=== PATIENT | male | born 1960 | race Caucasian/White ===

== ENCOUNTER → 2017-02-15 | Outpatient (CLI) | payer OTHER ==
--- NOTE | 2017-02-15 17:28 | CARD ---
APPROVED REPORT EXAM: Two-dimensional and M-mode echocardiogram with Doppler and color Doppler. Other Information Quality : Good INDICATION Murmur 2D DIMENSIONS RVDd3.6 (2.9-3.5cm)Left Atrium(2D)4.3 (1.6-4.0cm) IVSd1.2 (0.7-1.1cm)Aortic Root(2D)3.4 (2.0-3.7cm) LVDd5.5 (3.9-5.9cm)LVOT Diameter2.5 (1.8-2.4cm) PWd1.2 (0.7-1.1cm)LVDs3.7 (2.5-4.0cm) FS (%) 33.8 %SV92.7 ml LVEF(%)60.0 (>50%) Aortic Valve AoV Peak Bud.141.8cm/sAoV VTI29.1cm AO Peak GR.8.0mmHgLVOT Peak Bud.126.3cm/s LVOT VTI 27.15cmAO Mean GR.5mmHg DONELL (VMAX)4.40hq2OFG (VTI)4.73cm2 AI P 1/2 Dwye066sg Mitral Valve MV E Wuimmlhy08.5cm/sMV DECEL KWLP429hr MV A Gfwpjjat92.4cm/sMV RCG30yi E/A Ratio0.6MVA (PHT)3.31cm2 TDI E/Lateral E'6.6E/Medial E'6.8 Tricuspid Valve TR P. Ycwdrbda285do/sRAP QQXRZKET8kdEu TR Peak Gr.88zxAdCXLC28wyUp Pulmonary Vein S1 Wgpcppou53.6cm/sD2 Ensiltjt62.2cm/s PVa eifzwwhd179cvnm LEFT VENTRICLE The left ventricle is normal size. There is mild concentric left ventricular hypertrophy. The left ve ntricular systolic function is normal and the ejection fraction is within normal range. The Ejection Fraction is 55-60%. Transmitral Doppler flow pattern is Grade I-abnormal relaxation pattern. RIGHT VENTRICLE The right ventricle is normal size. The right ventricular systolic function is normal. ATRIA The left atrium is mildly dilated. The right atrium size is normal. The interatrial septum is intact with no evidence for an atrial septal defect or patent foramen ovale as noted on 2-D or Doppler imagi ng. AORTIC VALVE The aortic valve is normal in structure and function. Doppler and Color Flow revealed trace aortic re gurgitation. There is no significant aortic valvular stenosis. MITRAL VALVE The mitral valve is normal in structure and function. There is no evidence of mitral valve prolapse. There is no mitral valve stenosis. Doppler and Color-flow revealed trace to mild mitral regurgitation . TRICUSPID VALVE The tricuspid valve is normal in structure and function. Doppler and Color Flow revealed trace tricus pid regurgitation. The PA pressure was estimated at 38 mmHg. There is no tricuspid valve stenosis. PULMONIC VALVE The pulmonary valve is normal in structure and function. Doppler and Color Flow revealed trace pulmon ic valvular regurgitation. There is no pulmonic valvular stenosis. GREAT VESSELS The aortic root is normal in size. The ascending aorta is normal in size. The IVC is normal in size a nd collapses >50% with inspiration. PERICARDIAL EFFUSION There is no evidence of significant pericardial effusion. Critical Notification Critical Value: No <Conclusion> The left ventricle is normal size. The left ventricular systolic function is normal and the ejection fraction is within normal range. The Ejection Fraction is 55-60%. There is mild concentric left ventricular hypertrophy. There is no significant aortic valvular stenosis. Doppler and Color Flow revealed trace aortic regurgitation. Doppler and Color-flow revealed trace to mild mitral regurgitation. Doppler and Color Flow revealed trace tricuspid regurgitation. The PA pressure was estimated at 38 mmHg.
== END | disposition home or self-care (01) ==
LOC: ECHO 10:50
PROVIDERS: ATTEND Internal Medicine Cardiovascular Disease
DX: I08.3 Combined rheumatic disorders of mitral, aortic and tricuspid valves (principal); R55 Syncope and collapse
CPT/HCPCS: 93306

== ENCOUNTER → 2018-07-04 | Outpatient (CLI) | payer OTHER ==
--- NOTE | 2018-07-04 16:40 | RAD ---
Bilateral lower extremity venous ultrasound, 07/04/2018: History: Leg swelling Duplex evaluation of the deep veins in the lower extremities was performed including grayscale, color-flow and spectral Doppler analysis. The femoral and popliteal veins demonstrate normal compressibility and normal responses to distal augmentation maneuvers. Color imaging of those vessels shows no evidence of intraluminal clot. The visualized deep veins in both calves are patent. IMPRESSION: There is no sonographic evidence of deep vein thrombosis in either lower extremity. Electronically signed by: Silverio Stock MD (07/04/2018 4:37 PM) [facility]
== END | disposition home or self-care (01) ==
LOC: US 15:35
PROVIDERS: ATTEND Family Medicine
DX: R22.41 Localized swelling, mass and lump, right lower limb (principal); R22.42 Localized swelling, mass and lump, left lower limb
CPT/HCPCS: 93970

== ENCOUNTER 2018-09-04 14:18 | Emergency (ER) | payer OTHER ==
[~2018-09-04] VITALS: Ht 198.1 cm; Wt 113.4 kg
[2018-09-04] MEDS ORDERED: IV NORMAL SALINE 1000ML BAG 1,000 ML IV ONE (14:30)
--- NOTE | 2018-09-04 14:45 | PHYS DOC ---
Past Medical History Past Medical History: Seizure Past Surgical History: Other Additional Past Surgical Histo: back and right carpal tunnel Alcohol Use: None Drug Use: None Adult General Chief Complaint Chief Complaint: SEIZURE HPI HPI Patient is a 58 year old male brought in by ambulance treatment of seizure. [facility] with shaking of the right hand also urinary incontinence was noted. History limited however the patient does say that he has had a seizure in the past but it was a long time ago he says he does not drink alcohol. Additional history obtained from the family patient has had a seizure approximately once 5 years for the last 20 years he is driving at this time does not track alcohol he says that it happens when he eats too much sugar or is not sleeping well. Both of those things occur last night Review of Systems Review of Systems Limited by altered mental status Current Medications Current Medications Current Medications Medications (Trade) Dose Ordered Sig/Maurice Start Time Stop Time Status Last Admin Dose Admin Acetaminophen (Tylenol) 1,000 mg 1X ONCE 09/04/18 16:45 09/04/18 16:46 DC 09/04/18 17:07 1,000 MG Lorazepam (Ativan) 1 mg 1X ONCE 09/04/18 14:30 09/04/18 14:31 DC 09/04/18 14:55 1 MG Sodium Chloride 1,000 ml @ 1,000 mls/hr 1X ONCE 09/04/18 14:30 09/04/18 15:29 DC 09/04/18 14:53 1,000 MLS/HR Allergies Allergies Allergies Coded Allergies Type Severity Reaction Last Updated Verified No Known Drug Allergies 09/04/18 No Physical Exam Physical Exam Constitutional: Well developed, well nourished,mild distress, non-toxic appearance. [] HENT: Normocephalic, atraumatic, bilateral external ears normal, oropharynx moist, no oral exudates, nose normal. [] Eyes: PERRLA, EOMI, conjunctiva normal, no discharge. [] Neck: Normal range of motion, no tenderness, supple, no stridor. [] Cardiovascular:Heart rate regular rhythm, no murmur [] Lungs & Thorax: Bilateral breath sounds clear to auscultation [] Abdomen: Bowel sounds normal, soft, no tenderness, no masses, no pulsatile masses. [] Skin: Warm, dry, no erythema, no rash. [] Back: No tenderness, no CVA tenderness. [] Extremities: No tenderness, no cyanosis, no clubbing, ROM intact, no edema. [] Neurologic: Alert and oriented X 2, normal motor function, normal sensory function, no focal deficits noted. [] no focal findings. Psychologic: Affect normal, judgement normal, mood anxious Current Patient Data Vital Signs Vital Signs Date Time Temp Pulse Resp B/P (MAP) Pulse Ox O2 Delivery O2 Flow Rate FiO2 09/04/18 17:01 90 20 97 09/04/18 14:20 97.7 151/95 (113) Room Air 97.7 Lab Values Laboratory Tests Test 09/04/18 15:00 White Blood Count 9.1 x10^3/uL (4.0-11.0) Red Blood Count 5.68 x10^6/uL (4.30-5.70) Hemoglobin 16.3 g/dL (13.0-17.5) Hematocrit 47.4 % (39.0-53.0) Mean Corpuscular Volume 84 fL (79-100) Mean Corpuscular Hemoglobin 29 pg (25-35) Mean Corpuscular Hemoglobin Concent 34 g/dL (31-37) Red Cell Distribution Width 14.4 % (11.5-14.5) Platelet Count 141 x10^3/uL (140-400) Neutrophils (%) (Auto) 70 % (31-73) Lymphocytes (%) (Auto) 18 % (24-48) L Monocytes (%) (Auto) 9 % (0-9) Eosinophils (%) (Auto) 2 % (0-3) Basophils (%) (Auto) 1 % (0-3) Neutrophils # (Auto) 6.4 x10^3uL (1.8-7.7) Lymphocytes # (Auto) 1.7 x10^3/uL (1.0-4.8) Monocytes # (Auto) 0.9 x10^3/uL (0.0-1.1) Eosinophils # (Auto) 0.2 x10^3/uL (0.0-0.7) Basophils # (Auto) 0.1 x10^3/uL (0.0-0.2) Sodium Level 138 mmol/L (136-145) Potassium Level 4.0 mmol/L (3.5-5.1) Chloride Level 100 mmol/L (98-107) Carbon Dioxide Level 22 mmol/L (21-32) Anion Gap 16 (6-14) H Blood Urea Nitrogen 20 mg/dL (8-26) Creatinine 1.0 mg/dL (0.7-1.3) Estimated GFR (Cockcroft-Gault) 77.0 BUN/Creatinine Ratio 20 (6-20) Glucose Level 115 mg/dL (70-99) H Calcium Level 8.6 mg/dL (8.5-10.1) Total Bilirubin 0.4 mg/dL (0.2-1.0) Aspartate Amino Transferase (AST) 23 U/L (15-37) Alanine Aminotransferase (ALT) 48 U/L (16-63) Alkaline Phosphatase 120 U/L (46-116) H Total Protein 8.0 g/dL (6.4-8.2) Albumin 3.8 g/dL (3.4-5.0) Albumin/Globulin Ratio 0.9 (1.0-1.7) L Urine Opiates Screen Neg (NEG) Urine Methadone Screen Neg (NEG) Urine Barbiturates Neg (NEG) Urine Phencyclidine Screen Neg (NEG) Urine Amphetamine/Methamphetamine Neg (NEG) Urine Benzodiazepines Screen Neg (NEG) Urine Cocaine Screen Neg (NEG) Urine Cannabinoids Screen Neg (NEG) Ethyl Alcohol Level < 10 mg/dL (0-10) Urine Ethyl Alcohol Neg (NEG) Laboratory Tests 09/04/18 15:00 Laboratory Tests 09/04/18 15:00 EKG EKG [] Radiology/Procedures Radiology/Procedures [] Impressions: ct head neg Course & Med Decision Making Course & Med Decision Making Pertinent Labs and Imaging studies reviewed. (See chart for details) []seizure recurrent but not in a long time. ativan labs head ct to r/o mass. denies etoh use. Reevaluation patient is alert and oriented I talked with the family about possibly initiating antiepileptic therapy and patient and sister are in agreement with this referral outpatient to Dr. Cage I started Keppra 500 twice a day I reviewed the side effect profile this medication he is agreeable to initiated. I did tell him explicitly that he is not allowed to drive and he cannot drive again until he is cleared by a neurologist. He understands this Dragon Disclaimer Dragon Disclaimer This electronic medical record was generated, in whole or in part, using a voice recognition dictation system. Departure Departure Impression: Primary Impression: Seizure Disposition: 01 HOME, SELF-CARE Condition: IMPROVED Referrals: JENNY VILLEGAS MD (PCP) Scripts Levetiracetam (KEPPRA) 500 Mg Tablet 1 TAB PO BID, #60 TAB 0 Refills Prov: LESA GARCIA MD 09/04/18 LESA GARCIA MD Sep 04, 2018 14:45
[2018-09-04 15:10] LABS: BASO # 0.1 x10^3/uL (0.0-0.2); BASO % 1 % (0-3); EOS # 0.2 x10^3/uL (0.0-0.7); EOS % 2 % (0-3); HEMATOCRIT 47.4 % (39.0-53.0); HEMOGLOBIN 16.3 g/dL (13.0-17.5); LYMPH # 1.7 x10^3/uL (1.0-4.8); LYMPH % 18 % (24-48); MEAN CORPUSCULAR HEMOGLOBIN 29 pg (25-35); MEAN CORPUSCULAR HGB CONC 34 g/dL (31-37); MEAN CORPUSCULAR VOLUME 84 fL (79-100); MONO # 0.9 x10^3/uL (0.0-1.1); MONO % 9 % (0-9); NEUT # 6.4 x10^3uL (1.8-7.7); NEUT % 70 % (31-73); PLATELET COUNT 141 x10^3/uL (140-400); RED BLOOD COUNT 5.68 x10^6/uL (4.30-5.70); RED CELL DISTRIBUTION WIDTH 14.4 % (11.5-14.5); WHITE BLOOD COUNT 9.1 x10^3/uL (4.0-11.0)
[2018-09-04 15:21] LABS: CALCIUM 8.6 mg/dL (8.5-10.1)
[2018-09-04 15:22] LABS: BARBITURATES NEG (NEG); BENZODIAZEPINES NEG (NEG); CANNABINOIDS NEG (NEG); COCAINE NEG (NEG); METHADONE NEG (NEG); OPIATES NEG (NEG); PHENCYCLIDINE NEG (NEG)
[2018-09-04 15:23] LABS: AMPHETAMINE/METHAMPHETAMINE NEG (NEG)
[2018-09-04 15:27] LABS: ALBUMIN 3.8 g/dL (3.4-5.0); ALBUMIN/GLOBULIN RATIO 0.9 (1.0-1.7); TOTAL BILIRUBIN 0.4 mg/dL (0.2-1.0)
--- NOTE | 2018-09-04 16:17 | RAD ---
CT HEAD INDICATION: SEIZURE COMPARISON: None Available. Exposure: One or more of the following individualized dose reduction techniques were utilized for this examination: 1. Automated exposure control 2. Adjustment of the mA and/or kV according to patient size 3. Use of iterative reconstruction technique TECHNIQUE: 5 mm contiguous axial images were obtained from the skull base to the vertex in both bone and soft tissue algorithm. FINDINGS: No abnormal attenuation within the brain parenchyma. No evidence of acute intracranial hemorrhage. No extra-axial fluid collections. No mass effect or midline shift. Ventricular size is appropriate. Basal cisterns are patent. No fractures identified.Meier-white differentiation is preserved.Globes and orbits are within normal limits. Paranasal sinuses and mastoid air cells are clear. IMPRESSION: No acute intracranial findings. Electronically signed by: Sandip Barrera MD (09/04/2018 3:34 PM) [place] [id number]
[2018-09-04] MEDS ORDERED: ACETAMINOPHEN 500 MG TABLET PO ONE (16:45)
[2018-09-04] MEDS ORDERED: LEVE500T56 PO (16:56)
[2018-09-04 17:01] VITALS: BP 126/79
== END 2018-09-04 17:26 | disposition home or self-care (01) ==
LOC: ER 14:18
DX: R56.9 Unspecified convulsions (principal)
CPT/HCPCS: 36415; 70450; 80053; 80307; 85025; 96374; 99284; G0480; J2060; J7030

== ENCOUNTER 2019-01-29 05:58 | Emergency (ER) | payer OTHER, SELFPAY ==
[~2019-01-29] VITALS: Ht 198.1 cm; Wt 129.3 kg
[~2019-01-29 05:58] MED LIST: LEVE500T56 PO
[2019-01-29 06:34] LABS: HEMATOCRIT 46.3 % (39.0-53.0); HEMOGLOBIN 15.3 g/dL (13.0-17.5); RED BLOOD COUNT 5.6 x10^6/uL (4.30-5.70); RED CELL DISTRIBUTION WIDTH 14.9 % (11.5-14.5); WHITE BLOOD COUNT 6.8 x10^3/uL (4.0-11.0)
[2019-01-29 06:40] LABS: CALCIUM 8.8 mg/dL (8.5-10.1); CREATININE 0.9 mg/dL (0.7-1.3)
[2019-01-29 06:51] LABS: PROTHROMBIN TIME PATIENT 13.1 SEC (11.7-14.0)
[2019-01-29] MEDS: SURGICEL HEMOSTAT 2X3 EACH. TP ONE (06:58)
[2019-01-29] MEDS: GELATIN SPONGE SIZE 100. TP ONE (07:00)
--- NOTE | 2019-01-29 07:08 | PHYS DOC ---
Past Medical History Past Medical History: Seizure Past Surgical History: Other Additional Past Surgical Histo: back and right carpal tunnel Alcohol Use: None Drug Use: None Adult General Chief Complaint Chief Complaint: LOWER EXT PAIN HPI HPI Patient is a 58 year old male who presents with complaining of right lower extremity bleeding. Patient states she had psychosis pain and this morning acc identally scratches lateral malleolus and had bleeding that could not stop spontaneously and had to put pressure dressing to stop bleeding. Patient denies other bleeding or history of the same problem previously. Patient does not take and colliquation medication. Review of Systems Review of Systems Constitutional: Denies fever or chills [] Eyes: Denies change in visual acuity, redness, or eye pain [] HENT: Denies nasal congestion or sore throat [] Respiratory: Denies cough or shortness of breath [] Cardiovascular: No additional information not addressed in HPI [] GI: Denies abdominal pain, nausea, vomiting, bloody stools or diarrhea [] : Denies dysuria or hematuria [] Musculoskeletal: Denies back pain or joint pain [] Integument: Denies rash or skin lesions [] Neurologic: Denies headache, focal weakness or sensory changes [] Endocrine: Denies polyuria or polydipsia [] All other systems were reviewed and found to be within normal limits, except as documented in this note. Current Medications Current Medications Current Medications Medications (Trade) Dose Ordered Sig/Maurice Start Time Stop Time Status Last Admin Dose Admin Cellulose (Surgicel Hemostat 2x3) 1 each 1X ONCE 01/29/19 07:00 01/29/19 07:01 DC 01/29/19 06:58 1 EACH Gelatin (Gelfoam Size 100) 1 each 1X ONCE 01/29/19 07:00 01/29/19 07:01 DC Allergies Allergies Allergies Coded Allergies Type Severity Reaction Last Updated Verified No Known Drug Allergies 09/04/18 No Physical Exam Physical Exam Constitutional: Well developed, well nourished, no acute distress, non-toxic appearance. [] HENT: Normocephalic, atraumatic. Eyes: PERRLA, EOMI, conjunctiva normal, no discharge. [] Neck: Normal range of motion, no tenderness, supple, no stridor. [] Cardiovascular:Heart rate regular rhythm, no murmur [] Lungs & Thorax: Bilateral breath sounds clear to auscultation [] Skin: Warm, dry, no erythema, no rash. [] Back: No tenderness, no CVA tenderness. [] Extremities: Right lower extremity with multiple varicose his pain and pinpoint area of venous bleeding in lateral malleolus. Neurologic: Alert and oriented X 3, normal motor function, normal sensory function, no focal deficits noted. [] Psychologic: Affect normal, judgement normal, mood normal. [] Current Patient Data Vital Signs Vital Signs Date Time Temp Pulse Resp B/P (MAP) Pulse Ox O2 Delivery O2 Flow Rate FiO2 01/29/19 07:15 69 19 182/110 (134) 95 Room Air 01/29/19 06:00 98.2 98.2 Lab Values Laboratory Tests Test 01/29/19 06:10 White Blood Count 6.8 x10^3/uL (4.0-11.0) Red Blood Count 5.60 x10^6/uL (4.30-5.70) Hemoglobin 15.3 g/dL (13.0-17.5) Hematocrit 46.3 % (39.0-53.0) Mean Corpuscular Volume 83 fL (79-100) Mean Corpuscular Hemoglobin 27 pg (25-35) Mean Corpuscular Hemoglobin Concent 33 g/dL (31-37) Red Cell Distribution Width 14.9 % (11.5-14.5) H Platelet Count 117 x10^3/uL (140-400) L Prothrombin Time 13.1 SEC (11.7-14.0) Prothrombin Time INR 1.0 (0.8-1.1) PTT 36 SEC (24-38) Sodium Level 141 mmol/L (136-145) Potassium Level 4.0 mmol/L (3.5-5.1) Chloride Level 102 mmol/L (98-107) Carbon Dioxide Level 30 mmol/L (21-32) Anion Gap 9 (6-14) Blood Urea Nitrogen 19 mg/dL (8-26) Creatinine 0.9 mg/dL (0.7-1.3) Estimated GFR (Cockcroft-Gault) 87.0 Glucose Level 112 mg/dL (70-99) H Calcium Level 8.8 mg/dL (8.5-10.1) Laboratory Tests 01/29/19 06:10 Laboratory Tests 01/29/19 06:10 EKG EKG [] Radiology/Procedures Radiology/Procedures [] Course & Med Decision Making Course & Med Decision Making Evaluation of patient in ER showed 58-year-old female patient presented to have bleeding from varicose vein of right lower extremity. Bleeding was stopped with applying Surgicel and pressure dressing. Patient was advised to follow-up with vascular surgeon. Dragon Disclaimer Dragon Disclaimer This electronic medical record was generated, in whole or in part, using a voice recognition dictation system. Departure Departure Impression: Primary Impression: Bleeding from varicose veins of right lower extremity Disposition: HOME, SELF-CARE (at 0705) Condition: IMPROVED Referrals: JENNY VILLEGAS MD (PCP) JENNY CHU MD Patient Instructions: Bleeding Varicose Veins, Varicose Veins Additional Instructions: keep wound clean and dry Follow-up with your primary care physician in 3-5 days Return to ER if not getting better Follow-up with vascular surgeon in one or 2 days for treatment of varicose vein MARCOS MOY MD January 29, 2019 07:08
[2019-01-29 07:15] VITALS: BP 182/110
== END 2019-01-29 07:18 | disposition home or self-care (01) ==
LOC: ER 05:58
DX: I83.811 Varicose veins of right lower extremity with pain (principal)
CPT/HCPCS: 36415; 80048; 85027; 85610; 85730; 99284

== ENCOUNTER 2020-02-17 22:04 | Emergency (ER) | payer BC ==
[~2020-02-17] VITALS: Ht 198.1 cm; Wt 120.9 kg
[2020-02-17] MEDS ORDERED: KETOROLAC 60 MG/2 ML VIAL. IM ONE (23:00)
--- NOTE | 2020-02-17 23:30 | RAD ---
Study: CR HIP RIGHT 1 VIEW WITH PELVIS Indication: Pain. Comparison: None. Findings: Degenerative changes of both hips without severe joint space narrowing.. Cam-type deformity at the right femoral head/neck junction. Portions of both sacroiliac joints appear fused. Possible prior lower lumbar dorsal decompression on a background of degenerative changes. No acute osseous abnormality. Impression: 1. No acute fracture. 2. Relatively mild arthrosis of both hips. 3. Constellation of findings which are nonspecific but can be seen in the setting of diffuse idiopathic skeletal hyperostosis. Electronically signed by: BHARATH TREJO MD (02/17/2020 11:27 PM) [id number]
--- NOTE | 2020-02-18 00:43 | PHYS DOC ---
Past Medical History Past Medical History: Hypothyroid, Seizure, Other Additional Past Medical Histor: "LEAKY VALVE" Past Surgical History: Tonsillectomy, Other Additional Past Surgical Histo: back and right carpal tunnel Smoking Status: Never Smoker Alcohol Use: None Drug Use: None General Adult EDM: Chief Complaint: LOWER BACK PAIN OR INJURY HPI: HPI: 59 yo F PMH hypothroidism and back injury 2 yrs ago (s/p sx w/Dr. Glass), presents to the ED with complaints of pain over his right low back after his flip flop slipped from underneath him while he was going down the steps. Landed on the right side of his back. Patient states this happened around 5:30 PM and he took ibuprofen. Fell asleep and when he woke up the pain was still there. States Flexeril usually helps him with his pain but he was going to try to go to work tonight, came here to make sure nothing was broken. Pt declines further analgesia in ed (other than apap/nsaids). Is walking steadily. ROS: Denies associated fever, chills, rash, headache, neurologic deficits, neck stiffness, nausea, vomiting, cough, dyspnea, chest pain, leg swelling, saddle anesthesia, urinary or bowel retention or incontinence. Review of Systems: Review of Systems: Constitutional: Denies fever or chills. [] Eyes: Denies change in visual acuity. [] HENT: Denies nasal congestion or sore throat. [] Respiratory: Denies cough or shortness of breath. [] Cardiovascular: Denies chest pain or edema. [] GI: Denies abdominal pain, nausea, vomiting, bloody stools or diarrhea. [] : Denies dysuria. [] Musculoskeletal: Denies back pain or joint pain. [] Integument: Denies rash. [] Neurologic: Denies headache, focal weakness or sensory changes. [] Endocrine: Denies polyuria or polydipsia. [] Lymphatic: Denies swollen glands. [] Psychiatric: Denies depression or anxiety. [] Heart Score: Risk Factors: Risk Factors: DM, Current or recent (<one month) smoker, HTN, HLP, family his tory of CAD, obesity. Risk Scores: Score 0 - 3: 2.5% MACE over next 6 weeks - Discharge Home Score 4 - 6: 20.3% MACE over next 6 weeks - Admit for Clinical Observation Score 7 - 10: 72.7% MACE over next 6 weeks - Early Invasive Strategies Current Medications: Current Medications Medications (Trade) Dose Ordered Sig/[facility] Start Time Stop Time Status Last Admin Dose Admin Ketorolac Tromethamine (Toradol Im) 30 mg 1X ONCE 02/17/20 23:00 02/17/20 23:01 DC 02/17/20 23:02 30 MG Allergies: Allergies: Allergies Coded Allergies Type Severity Reaction Last Updated Verified No Known Drug Allergies 09/04/18 No Physical Exam: PE: Constitutional: Well developed, well nourished, no acute distress, non-toxic appearance. [] HENT: Normocephalic, atraumatic, bilateral external ears normal, oropharynx moist, no oral exudates, nose normal. [] Eyes: PERRLA, EOMI, conjunctiva normal, no discharge. [] Neck: Normal range of motion, no tenderness, supple, no stridor. [] Cardiovascular:Heart rate regular rhythm, no murmur [] Lungs & Thorax: Bilateral breath sounds clear to auscultation [] Abdomen: Bowel sounds normal, soft, no tenderness, no masses, no pulsatile masses. [] Skin: Warm, dry, no erythema, no rash. [] Back: No tenderness, no CVA tenderness, +right SI joint pain -no midline back pain, no radiculopathy, steady gait, no ataxis Extremities: No tenderness, no cyanosis, no clubbing, ROM intact, no edema. [] Neurologic: Alert and oriented X 3, normal motor function, normal sensory function, no focal deficits noted. [] Psychologic: Affect normal, judgement normal, mood normal. [] EKG: EKG: [] Radiology/Procedures: Radiology/Procedures: IMAGING REPORT Signed PATIENT: JASON MCKNIGHT [facility]: [id number] : 1960 LOCATION: ER AGE: 59 SEX: M EXAM STATUS: REG ER ORD. PHYSICIAN: MALLORIE WOODARD DO REASON: pain PROCEDURE: HIP RIGHT 1 VIEW WITH PELVIS Study: CR HIP RIGHT 1 VIEW WITH PELVIS Indication: Pain. Comparison: None. Findings: Degenerative changes of both hips without severe joint space narrowing.. Cam-type deformity at the right femoral head/neck junction. Portions of both sacroiliac joints appear fused. Possible prior lower lumbar dorsal decompression on a background of degenerative changes. No acute osseous abnormality. Impression: 1. No acute fracture. 2. Relatively mild arthrosis of both hips. 3. Constellation of findings which are nonspecific but can be seen in the setting of diffuse idiopathic skeletal hyperostosis. Electronically signed by: BHARATH TREJO MD (02/17/2020 11:27 PM) [id number] DICTATED and SIGNED BY: BHARATH TREJO MD DATE: 02/17/20 2327 Impression: Concern for right SI joint pain with no radiculopathy or neurologic deficits. Well controlled with ibuprofen. Imaging with no acute fracture. Will have patient follow-up with his PMD and orthopedic surgery. Strict ED return precautions given for neurologic deficits. Low suspicion for life-threatening processes including meningitis or epidural abscess or cord compression syndrome. All patient's questions were answered and he was stable at time of discharge. Course & Med Decision Making: Course & Med Decision Making Pertinent Labs and Imaging studies reviewed. (See chart for details) [] Dragon Disclaimer: Dragon Disclaimer: This electronic medical record was generated, in whole or in part, using a voice recognition dictation system. Departure Departure Impression: Primary Impression: Back pain Additional Impression: Sacroiliac joint pain Disposition: 01 HOME, SELF-CARE Condition: STABLE Referrals: JENNY VILLEGAS MD (PCP) LISSA LUU MD Patient Instructions: Back Pain, Adult Justicifation of Admission Dx: Justifications for Admission: Justification of Admission Dx: No MALLORIE WOODARD DO Feb 18, 2020 00:43
[2020-02-18 01:08] VITALS: BP 144/83
== END 2020-02-18 01:13 | disposition home or self-care (01) ==
LOC: ER 22:21
DX: M54.5 Low back pain (principal); M53.3 Sacrococcygeal disorders, not elsewhere classified; M16.0 Bilateral primary osteoarthritis of hip; E03.9 Hypothyroidism, unspecified
CPT/HCPCS: 73501; 96372; 99284; J1885